=== PATIENT | male | born 1985 | race Caucasian/White ===

== ENCOUNTER 2022-12-17 22:12 | Emergency (ER) | payer BC, MEDICAID, SELFPAY ==
[2022-12-17 22:51] VITALS: BP 130/77; PULSE 62; RESP 18; TEMP 36.1; O2SAT 99
--- NOTE | 2022-12-17 23:33 | ED.NURSE ---
cleaned hand lac.
--- NOTE | 2022-12-17 23:37 | ED.GENADULT ---
HPI - General Adult General Time Seen by Provider: 23:37 Date Seen: 12/17/22 Stated complaint: Lac to Left Hand, Slipped on Ice Time Seen by Provider: 12/17/22 23:27 Source: patient Mode of arrival: ambulatory Limitations: no limitations History of Present Illness HPI narrative: 37-year-old right-handed male who comes in today with laceration of left hand. Patient slipped on the ice and fell, no other injury but did cut his left hand. No head injury loss of conscious. No wrist pain. Related Data Home Medications Medication Instructions Recorded Confirmed No Known Home Medications 12/17/22 12/17/22 Allergies Allergy/AdvReac Type Severity Reaction Status Date / Time No Known Drug Allergies Allergy Verified 12/17/22 22:52 Exam Narrative: Exam Narrative: General: well nourished , NAD Head: Atraumatic and normocephalic ENT: External ears and external nose are normal Eyes: Conjunctiva clear, pupils are equal reactive, external ocular motions are intact Neck: Full spontaneous range of motion of the neck Lungs: No respiratory distress Musculoskeletal: No tenderness or deformity Neurologic: No gross focal neurologic deficits Skin: No rashes. 2 cm curvilinear laceration of the left hypothenar area, no flap Psych: Mood and affect are appropriate Const: Vital Signs, click to edit/add: Vital Signs - 24 hr 12/17/22 22:51 Temperature 97.0 F L Pulse Rate [Left P ulse Oximeter] 62 Respiratory Rate 18 Blood Pressure [Ri ght Upper Arm] 130/77 Pulse Oximetry 99 Oxygen Delivery Me thod Room Air Course Course Hospital Course: Patient seen examined, prior records reviewed. Patient presents with a laceration of the hypothenar region the left hand. This is not a flap. Discussed possible treatment options the patient. Wound was closed with Dermabond, patient tolerated this well, discussed wound care and stable for discharge. Vital Signs Vital signs: Initial Vital Signs Temperature 97.0 F L 12/17/22 22:51 Temperature Source Temporal Artery Scan 12/17/22 22:51 Pulse Rate 62 12/17/22 22:51 Pulse Rhythm 12/17/22 22:51 Respiratory Rate 18 12/17/22 22:51 Blood Pressure 130/77 12/17/22 22:51 Blood Pressure Mean 94 12/17/22 22:51 Blood Pressure Position Sitting 12/17/22 22:51 Pulse Oximetry 99 12/17/22 22:51 Oxygen Delivery Method 12/17/22 22:51 Vital Signs Temperature 97.0 F L 12/17/22 22:51 Pulse Rate 62 12/17/22 22:51 Respiratory Rate 18 12/17/22 22:51 Blood Pressure 130/77 12/17/22 22:51 Pulse Oximetry 99 12/17/22 22:51 Oxygen Delivery Method 12/17/22 22:51 Temperature 97.0 F L 12/17/22 22:51 Pulse Rate 62 12/17/22 22:51 Respiratory Rate 18 12/17/22 22:51 Blood Pressure 130/77 12/17/22 22:51 Pulse Oximetry 99 12/17/22 22:51 Oxygen Delivery Method 12/17/22 22:51 Discharge Plan Discharge Clinical Impression: Laceration of hand, left Patient Disposition: Home, Self-Care Condition: Stable Instructions: Skin Adhesive Care (ED) Activity Level: No Restrictions Discharge Diet: Regular Prescriptions: No Action No Known Home Medications Follow Up/Referrals: Provider,Not a Local [Primary Care Provider] - Stand Alone Forms: MyHealth Info Instructions
[2022-12-18] MEDS: TETANUS/DIPHTH/PERTUSSIS 0.5 ML SYRINGE IM (00:14)
== END 2022-12-18 00:18 | disposition home or self-care (01) ==
LOC: ED 23:52
PROVIDERS: Emergency Provider Family Medicine
DX: S61.412A Laceration without foreign body of left hand, initial encounter (principal); W00.9XXA Unspecified fall due to ice and snow, initial encounter
CPT/HCPCS: 12001; 90471; 90715; 99283